=== PATIENT | male | born 1970 | race Caucasian/White ===

== ENCOUNTER 2024-07-26 07:33 | Observation (INO) ==
[2024-07-26] MEDS: NOZIN NASAL SANITIZER TP ONE (07:53)
[2024-07-26] MEDS: NS 1,000 ML IV 1,000 ML ONE ×2 (08:15→15:45)
[2024-07-26 08:46] VITALS: BMI 40.8
[2024-07-26] MEDS: FENTANYL VIAL INJ 250 mcg ONE (12:10)
[2024-07-26] MEDS: DIPRIVAN VIAL 20 ML ONE (12:10)
[2024-07-26] MEDS: REGLAN INJ 10 MG VIAL ONE (12:10)
[2024-07-26] MEDS: TORADOL 30 MG VIAL ONE (12:10)
[2024-07-26] MEDS: PEPCID 20 MG VIAL ONE (12:10)
[2024-07-26] MEDS: NS 100 ML IV 100 ML ONE ×2 (12:10→16:01)
[2024-07-26] MEDS: ZOFRAN INJ 4 MG VIAL ONE (12:10)
[2024-07-26] MEDS: OFIRMEV IV 1000 MG VIAL 1,000 MG/100 ML VIAL IV ONE (12:10)
[2024-07-26] MEDS: VERSED ONE (12:10)
[2024-07-26] MEDS: ANCEF VIAL 1 GRAM ONE (12:10)
[2024-07-26] MEDS ORDERED: ULTANE GAS IN ONE (12:10)
[2024-07-26] MEDS: BRIDION ONE (12:10)
[2024-07-26] MEDS: POLYMYXIN B SULFATE ONE (12:43)
[2024-07-26] MEDS: MARCAINE/EPINEPHRINE ONE (12:43)
[2024-07-26] MEDS: EPHEDRINE SULFATE INJ ONE (12:51)
[2024-07-26] MEDS ORDERED: BENADRYL INJ 50 MG VIAL IVP PRN (13:19)
[2024-07-26] MEDS ORDERED: REGLAN INJ 10 MG VIAL IVP PRN (13:19)
[2024-07-26] MEDS ORDERED: BARHEMSYS INJ IVP PRN (13:19)
[2024-07-26] MEDS: DILAUDID INJ IVP PRN ×2 (14:07→20:12)
[2024-07-26] MEDS ORDERED: MORPHINE SULFATE INJ 2 MG INJ IVP PRN (14:41)
[2024-07-26] MEDS ORDERED: NS 250 ML IV 25 ML IV PRN (14:42)
[2024-07-26] MEDS ORDERED: ZOFRAN INJ 4 MG VIAL ONE (15:32)
[2024-07-26] MEDS: DILAUDID INJ ONE (15:46)
[2024-07-26] MEDS: ZOFRAN INJ 4 MG VIAL IVP PRN ×2 (15:47→20:12)
[2024-07-26] MEDS: ZOSYN VIAL 3.375 GRAMS 3.375 G in NS 100 ML IV 100 ML IV SCH (15:55)
[2024-07-26] MEDS: MORPHINE SULFATE INJ 4 MG ONE (15:56)
[2024-07-26] MEDS: ZOSYN VIAL 3.375 GRAMS IV ONE (16:02)
[2024-07-26] MEDS: D5 1/2 NS 1,000 ML 1,000 ML IV SCH (16:31)
[2024-07-26] MEDS: TORADOL 30 MG VIAL IVP PRN (18:24)
[2024-07-27 06:06] LABS: BASOPHILS # (AUTO) 0.1 X10^3/uL (0.0-0.1); BASOPHILS % (AUTO) 0.4 % (0.2-1.0); EOSINOPHILS % (AUTO) 0.3 % (0.9-2.9); HEMATOCRIT 42.3 % (42.0-54.0); HEMOGLOBIN 14.5 g/dL (13.5-18.0); LYMPHOCYTES # (AUTO) 2.6 X10^3/uL (1.3-2.9); LYMPHOCYTES % (AUTO) 16.7 % (21.0-51.0); MEAN CORPUSCULAR HGB CONC 34.2 g/dL (33.0-35.0); MEAN CORPUSCULAR VOLUME 96.4 fL (80.0-100.0); MEAN PLATELET VOLUME 9.9 fL (7.4-11.0); MONOCYTES # (AUTO) 1.6 x10^3/uL (0.3-0.8); MONOCYTES % (AUTO) 10.6 % (0.0-13.0); NEUTROPHILS # (AUTO) 11.2 x10^3/uL (2.2-4.8); PLATELET COUNT 356 X10^3/uL (150.0-450.0); RED BLOOD COUNT 4.39 X10^6/uL (4.7-6.0); RED CELL DISTRIBUTION WIDTH 12.6 % (11.6-16.5); WHITE BLOOD COUNT 15.6 X10^3/uL (3.6-10.0)
[2024-07-27 06:25] LABS: ALANINE AMINOTRANSFERASE 59 Units/L (12-78); ALBUMIN 3.4 g/dL (3.4-5.0); ALKALINE PHOSPHATASE 49 Units/L (46-116); ASPARTATE AMINO TRANSFERASE 33 Units/L (15-37); BLOOD UREA NITROGEN 14 mg/dL (7-18); CARBON DIOXIDE 29.3 mmol/L (21-32); CHLORIDE 103 mmol/L (98-107); COR NA(FOR HYPERGLY) 142 mmol/L (136-145); CREATININE 1.14 mg/dL (0.70-1.30); GLUCOSE 169 mg/dL (65-99); POTASSIUM 4.4 mmol/L (3.5-5.1); SODIUM 140 mmol/L (136-145); eGFR NON BLACK RACES > 60 (>60)
[2024-07-27] MEDS: PERCOCET TAB 5/325 MG PO PRN (11:36)
--- NOTE | 2024-07-27 13:54 | DR.PROGNOT ---
HOSPITAL PROGRESS NOTE Progress Note for Day of: Progress Note Date: 07/27/24 Chief Complaint Chief Complaint: Patient still complaining of incisional pain requiring strong medications. He is on bladder retraining before removing the Betts catheter. Blood sugar 169, white count 15.6. Normal electrolytes, liver function test and renal test. Past Medical Family Social History Allergies: Allergies Fish Containing Products Allergy (Verified 07/04/24 10:00) morphine Adverse Reaction (Verified 07/26/24 17:16) Fish Allergy (Unknown, Uncoded 09/07/22 09:02) Vital Signs Vital Signs: Vital Signs Temperature 98.9 F Temperature 98.4 F Pulse Rate [Left Radial] 95 Pulse Rate [Left Radial] 92 Respiratory Rate 18 Respiratory Rate 18 Respiratory Rate 18 Respiratory Rate 18 Respiratory Rate 19 Respiratory Rate 19 Respiratory Rate 18 Respiratory Rate 19 Blood Pressure [Right Arm] 131/58 Blood Pressure [Right Arm] 142/76 O2 Sat by Pulse Oximetry 91 O2 Sat by Pulse Oximetry 91 Physical Exam Oriented: Normal Eyes: Normal Ear: Normal Nose: Normal Respiratory: Normal Cardiovascular: Normal GI:Auscultation: Normal GI: Tenderness: Other (Moderate diffuse mid abdominal tenderness around the incision, bowel sounds present.) Mood Description: Calm Speech Pattern: Clear and Appropriate Laboratory and Diagnostics 07/27/24 05:10 07/27/24 05:10 Labs: Laboratory WBC 15.6 X10^3/uL (3.6-10.0) H 07/27/24 05:10 RBC 4.39 X10^6/uL (4.7-6.0) L 07/27/24 05:10 Hgb 14.5 g/dL (13.5-18.0) 07/27/24 05:10 Hct 42.3 % (42.0-54.0) 07/27/24 05:10 MCV 96.4 fL (80.0-100.0) 07/27/24 05:10 MCH 33.0 pg (27.0-34.0) 07/27/24 05:10 MCHC 34.2 g/dL (33.0-35.0) 07/27/24 05:10 RDW 12.6 % (11.6-16.5) 07/27/24 05:10 Plt Count 356 X10^3/uL (150.0-450.0) 07/27/24 05:10 MPV 9.9 fL (7.4-11.0) 07/27/24 05:10 Neut % (Auto) 72.0 % (42.0-75.0) 07/27/24 05:10 Lymph % (Auto) 16.7 % (21.0-51.0) L 07/27/24 05:10 [place] % (Auto) 10.6 % (0.0-13.0) 07/27/24 05:10 Eos % (Auto) 0.3 % (0.9-2.9) L 07/27/24 05:10 Baso % (Auto) 0.4 % (0.2-1.0) 07/27/24 05:10 Neut # (Auto) 11.2 x10^3/uL (2.2-4.8) H 07/27/24 05:10 Lymph # (Auto) 2.6 X10^3/uL (1.3-2.9) 07/27/24 05:10 [place] # (Auto) 1.6 x10^3/uL (0.3-0.8) H 07/27/24 05:10 Eos # (Auto) 0.0 x10^3/uL (0.0-0.2) 07/27/24 05:10 Baso # (Auto) 0.1 X10^3/uL (0.0-0.1) 07/27/24 05:10 Absolute Nucleated RBC 0.0 /100WBC 07/27/24 05:10 Sodium 140 mmol/L (136-145) 07/27/24 05:10 Corrected Sodium 142 mmol/L (136-145) 07/27/24 05:10 Potassium 4.4 mmol/L (3.5-5.1) 07/27/24 05:10 Chloride 103 mmol/L (98-107) 07/27/24 05:10 Carbon Dioxide 29.3 mmol/L (21-32) 07/27/24 05:10 BUN 14 mg/dL (7-18) 07/27/24 05:10 Creatinine 1.14 mg/dL (0.70-1.30) 07/27/24 05:10 Est GFR (MDRD) Af Amer > 60 (>60) 07/27/24 05:10 Est GFR (MDRD) Non-Af > 60 (>60) 07/27/24 05:10 Glucose 169 mg/dL (65-99) H 07/27/24 05:10 POC Glucose (mg/dL) 156 mg/dL (65-99) H 07/27/24 10:49 Calcium 9.0 mg/dL (8.5-10.1) 07/27/24 05:10 Corrected Calcium TNP 07/27/24 05:10 Total Bilirubin 0.40 mg/dL (0.2-1.0) 07/27/24 05:10 AST 33 Units/L (15-37) 07/27/24 05:10 ALT 59 Units/L (12-78) 07/27/24 05:10 Alkaline Phosphatase 49 Units/L (46-116) 07/27/24 05:10 Total Protein 7.0 g/dL (6.4-8.2) 07/27/24 05:10 Albumin 3.4 g/dL (3.4-5.0) 07/27/24 05:10 Globulin 3.6 g/dL (2.5-4.5) 07/27/24 05:10 Albumin/Globulin Ratio 0.9 Ratio (1.1-2.1) L 07/27/24 05:10 Assessment and Plan 1: Postop repair of multiple incisional hernias, lysis of abdominal adhesions, partial omentectomy. To DC the Betts catheter later on today, advance diet, incentive spirometer and DVT prophylaxis. Possible discharge in the morning.
[2024-07-27] MEDS: SNACK - Diabetic Appropriate PO SCH (20:47)
[2024-07-27] MEDS: NEURONTIN CAP 100 MG PO SCH (22:14)
[2024-07-27] MEDS: NovoLIN R (or HumuLIN R) SUBCUT PRN (22:14)
[2024-07-28 06:16] LABS: ALANINE AMINOTRANSFERASE 40 Units/L (12-78); ALBUMIN 2.9 g/dL (3.4-5.0); ALKALINE PHOSPHATASE 45 Units/L (46-116); ASPARTATE AMINO TRANSFERASE 25 Units/L (15-37); BLOOD UREA NITROGEN 13 mg/dL (7-18); CALCIUM 8.8 mg/dL (8.5-10.1); CARBON DIOXIDE 29.8 mmol/L (21-32); CHLORIDE 105 mmol/L (98-107); COR CA(FOR HYPOALB) 9.7 mg/dL (8.5-10.1); COR NA(FOR HYPERGLY) 141 mmol/L (136-145); CREATININE 1.03 mg/dL (0.70-1.30); GLUCOSE 193 mg/dL (65-99); SODIUM 139 mmol/L (136-145); TOTAL PROTEIN 6.5 g/dL (6.4-8.2); eGFR NON BLACK RACES > 60 (>60)
[2024-07-28 06:18] LABS: BASOPHILS # (AUTO) 0.1 X10^3/uL (0.0-0.1); BASOPHILS % (AUTO) 0.8 % (0.2-1.0); EOSINOPHILS # (AUTO) 0.3 x10^3/uL (0.0-0.2); EOSINOPHILS % (AUTO) 2.1 % (0.9-2.9); HEMATOCRIT 41.1 % (42.0-54.0); HEMOGLOBIN 13.9 g/dL (13.5-18.0); LYMPHOCYTES % (AUTO) 21.1 % (21.0-51.0); MEAN CORPUSCULAR HEMOGLOBIN 32.6 pg (27.0-34.0); MEAN CORPUSCULAR HGB CONC 33.8 g/dL (33.0-35.0); MEAN CORPUSCULAR VOLUME 96.7 fL (80.0-100.0); MEAN PLATELET VOLUME 10.4 fL (7.4-11.0); MONOCYTES # (AUTO) 2.4 x10^3/uL (0.3-0.8); MONOCYTES % (AUTO) 16.9 % (0.0-13.0); NEUTROPHILS # (AUTO) 8.4 x10^3/uL (2.2-4.8); NEUTROPHILS % (AUTO) 59.1 % (42.0-75.0); PLATELET COUNT 304 X10^3/uL (150.0-450.0); RED BLOOD COUNT 4.24 X10^6/uL (4.7-6.0); RED CELL DISTRIBUTION WIDTH 12.7 % (11.6-16.5); WHITE BLOOD COUNT 14.1 X10^3/uL (3.6-10.0)
[2024-07-28 06:20] LABS: POTASSIUM 5.1 mmol/L (3.5-5.1)
[2024-07-28] MEDS: AMARYL TAB 4 MG PO SCH (06:22)
[2024-07-28 06:48] LABS: PLATELET MORPHOLOGY COMMENT NORMAL (NORMAL)
[2024-07-28] MEDS ORDERED: TAPAZOLE ONE (08:07)
[2024-07-28] MEDS: PROzac PO SCH (08:18)
[2024-07-28] MEDS: DIOVAN TAB 160 MG PO SCH (08:18)
[2024-07-28] MEDS: TRICOR TAB 145 MG PO SCH (08:19)
[2024-07-28] MEDS: TAPAZOLE PO SCH (08:19)
[2024-07-28] MEDS: PATIENT'S HOME MEDICATION PO SCH (08:22)
[2024-07-28] MEDS: FARXIGA PO SCH (09:13)
[2024-07-28 10:14] VITALS: PULSE 81; TEMP 98.2; O2SAT 94
[2024-07-28 10:21] VITALS: BP 160/78
[2024-07-28 11:02] VITALS: RESP 20
[2024-07-28] MEDS ORDERED: SNACK - Diabetic Appropriate PO SCH (20:00)
== END 2024-07-28 13:29 | disposition home or self-care (01) ==
LOC: MED/SURG 07:33 → SURG1 07:33
PROVIDERS: ADMIT Surgery; ATTEND Surgery
DX: E11.65 Type 2 diabetes mellitus with hyperglycemia; K43.9 Ventral hernia without obstruction or gangrene